=== PATIENT | male | born 1990 | race Caucasian/White ===

== ENCOUNTER 2018-09-24 20:30 | Emergency (ER) | payer OTHER ==
[~2018-09-24] VITALS: Ht 170.2 cm; Wt 82.4 kg
[~2018-09-24 20:30] MED LIST: ACET500C5 PO; ONDA4TAB14 PO
[2018-09-24 20:32] VITALS: BP 153/74; PULSE 118; RESP 18; Ht 170.2 cm; Wt 82.4 kg
[2018-09-24] MEDS ORDERED: ONDANSETRON (ODT) 4 MG TAB ODT STA (22:31)
--- NOTE | 2018-09-24 22:35 | ERD ---
ER Documentation Chief Complaint Chief Complaint LLQ ABD PAIN XTODAY; BLOATING, NO OTHER S/S; STATES DRANK ALOT YESTERDAY HPI This is a 27-year-old male patient presents emergency room with complaint of left mid abdominal pain starting today. Patient states he went to a barbecue yesterday and ate some different foods and drink a lot of alcohol. + Nausea, - vomiting, BM today which he describes as "normal", no melena, no hematochezia, no dysuria or hematuria. No chronic medical problems. ROS All systems reviewed and are negative except as per history of present illness. Medications Home Meds Active Scripts Ondansetron (Ondansetron Odt) 4 Mg Tab.rapdis, 4 MG PO Q6H PRN for NAUSEA AND/OR VOMITING, #10 TAB Prov:CODY APARICIO NP 09/25/18 Acetaminophen* (Tylophen*) 500 Mg Capsule, 2 CAP PO Q8H PRN for PAIN AND OR ELEVATED TEMP, #20 CAP Prov:CODY APARICIO AUCTION ASSISTANT 09/25/18 Allergies Allergies: Coded Allergies: No Known Allergy (Unverified , 09/24/18) PMhx/Soc Medical and Surgical Hx: pt denies Medical Hx, pt denies Surgical Hx Hx Alcohol Use: Yes Hx Substance Use: Yes (MARIJUANA 09/24/18) Hx Tobacco Use: Yes Smoking Status: Current every day smoker FmHx Family History: No diabetes, No coronary disease, No other Physical Exam Vitals Vital Signs Date Temp Pulse Resp B/P (MAP) Pulse Ox O2 O2 Flow FiO2 Time Delivery Rate 09/24/18 99.7 118 18 153/74 95 20:32 (100) Physical Exam Const: No acute distress Head: Atraumatic Eyes: Normal Conjunctiva, PERRL ENT: Normal External Ears, Nose and Mouth. Neck: Full range of motion. No meningismus. No lymphadenopathy. Resp: Clear to auscultation bilaterally Cardio: Regular rate and rhythm, no murmurs Abd: Soft, tender at mid left abd, non distended. Normal bowel sounds, no spleno or hepatomegaly. No rebound, no guarding, no bruising. Skin: No petechiae or rashes Back: No midline or flank tenderness, no CVT Ext: No cyanosis, or edema Neur: Awake and alert, clear speech steady gait Psych: Normal Mood and Affect Result Diagram: 09/24/18224109/24/182241 Results 24 hrs Laboratory Tests Test 09/24/18 22:42 White Blood Count 9.7 10^3/ul Red Blood Count 4.99 10^6/ul Hemoglobin 15.3 g/dl Hematocrit 45.2 % Mean Corpuscular Volume 90.6 fl Mean Corpuscular Hemoglobin 30.7 pg Mean Corpuscular Hemoglobin Concent 33.8 g/dl Red Cell Distribution Width 12.0 % Platelet Count 222 10^3/UL Mean Platelet Volume 10.9 fl Immature Granulocytes % 0.400 % Neutrophils % 71.1 % Lymphocytes % 18.9 % Monocytes % 8.9 % Eosinophils % 0.1 % Basophils % 0.6 % Nucleated Red Blood Cells % 0.0 /100WBC Immature Granulocytes # 0.040 10^3/ul Neutrophils # 6.9 10^3/ul Lymphocytes # 1.8 10^3/ul Monocytes # 0.9 10^3/ul Eosinophils # 0.0 10^3/ul Basophils # 0.1 10^3/ul Nucleated Red Blood Cells # 0.0 10^3/ul Urine Color YELLOW Urine Clarity CLEAR Urine pH 5.0 Urine Specific [place] 1.026 Urine Ketones 2+ mg/dL Urine Nitrite NEGATIVE mg/dL Urine Bilirubin NEGATIVE mg/dL Urine Urobilinogen NEGATIVE mg/dL Urine Leukocyte Esterase NEGATIVE [place] Urine Hemoglobin NEGATIVE mg/dL Urine Glucose NEGATIVE mg/dL Urine Total Protein NEGATIVE mg/dl Sodium Level 143 mmol/L Potassium Level 4.2 mmol/L Chloride Level 104 mmol/L Carbon Dioxide Level 28 mmol/L Anion Gap 11 Blood Urea Nitrogen 16 mg/dl Creatinine 0.83 mg/dl Est Glomerular Filtrat Rate mL/min > 60 mL/min Glucose Level 101 mg/dl Calcium Level 10.0 mg/dl Total Bilirubin 0.8 mg/dl Direct Bilirubin 0.00 mg/dl Indirect Bilirubin 0.8 mg/dl Aspartate Amino Transf (AST/SGOT) 29 IU/L Alanine Aminotransferase (ALT/SGPT) 30 IU/L Alkaline Phosphatase 91 IU/L Total Protein 8.5 g/dl Albumin 4.9 g/dl Globulin 3.60 g/dl Albumin/Globulin Ratio 1.36 Lipase 25 U/L Current Medications Medications Dose Sig/Norm Start Time Status Last (Trade) Ordered Route PRN Stop Time Admin Dose Reason Admin Ondansetron 4 mg ONCE STAT 09/24/18 DC 09/24/18 HCl (Zofran ODT 22:31 22:35 Odt) 09/24/18 22:33 Procedures/MDM PROCEDURES/MDM LAB INTERPRETATION: No leukocytosis, no anemia, no electrolyte disturbance, normal kidney function, no hyper or hypoglycemia, no transaminitis, no pancreatitis, no UTI -Medications: Zofran Patient tolerated medication well with no adverse reactions. Patient reported improvement in nausea. MDM: This is a 27-year-old male patient presents emergency room with complaint of mid left abdominal pain. Laboratory results and physical exam do not indicate infection, sepsis, appendicitis, pancreatitis, diverticulitis, UTI, cholecystitis. The patient presents with abdominal pain without definite explanation found on evaluation today. However, there are no signs of peritonitis or other life- threatening or serious etiology. The patient appears stable for discharge and has been instructed to return immediately if the symptoms worsen in any way, or in 8-12 hours if not improved for re-evaluation. DISPOSITION and PLAN: RX: Tylenol, Zofran The patient has been discharge home to follow-up with community physician. Departure Diagnosis: Primary Impression: Abdominal pain Abdominal location: generalized Qualified Codes: R10.84 - Generalized abdominal pain Condition: Stable CODY APARICIO NP Sep 24, 2018 22:35
== END 2018-09-25 00:25 | disposition home or self-care (01) ==
LOC: FTE 20:30
DX: R10.84 Generalized abdominal pain (principal); F17.210 Nicotine dependence, cigarettes, uncomplicated; R11.0 Nausea
CPT/HCPCS: 36415; 80053; 81003; 83690; 85025; 99283